=== PATIENT | female | born 1990 | race African-American/Black ===

== ENCOUNTER 2021-07-09 12:24 | Emergency (ER) | payer SELFPAY ==
[~2021-07-09] VITALS: Ht 180.3 cm; Wt 68.0 kg
[2021-07-09] MEDS ORDERED: ONDANSETRON 4MG ODT PO ONE (12:45)
[2021-07-09] MEDS ORDERED: KETOROLAC 60MG/2ML VIAL IM ONE (12:45)
[2021-07-09 12:56] LABS: CLARITY URINE CLOUDY (CLEAR); COLOR URINE BLOODY (YELLOW); KETONES URINE 2+ (NEGATIVE); LEUKOCYTE ESTERASE URINE 1+ (NEGATIVE); NITRITE URINE NEGATIVE (NEGATIVE); OCCULT BLOOD URINE 3+ (NEGATIVE); PROTEIN URINE 3+ (NEGATIVE); SPECIFIC GRAVITY URINE 1.022 (1.005-1.030); UROBILINOGEN URINE 0.2 E.U./dL (0.2-1.0)
[2021-07-09] MEDS ORDERED: ONDA4TAB5 MT (13:53)
[2021-07-09] MEDS ORDERED: IBUP-2029 MT (13:53)
[2021-07-09 14:06] VITALS: BP 121/86
== END 2021-07-09 14:10 | disposition home or self-care (01) ==
LOC: ER 12:42
DX: N94.6 Dysmenorrhea, unspecified (principal)
CPT/HCPCS: 81003; 81025; 96372; 99283; J1885; Q0162